=== PATIENT | female | born 1975 | race Hispanic/Latino ===

== ENCOUNTER 2017-06-09 07:31 | Emergency (ER) | payer MEDICAID, OTHER ==
[~2017-06-09] VITALS: Ht 154.9 cm; Wt 73.6 kg
[2017-06-09 07:35] VITALS: BP 129/85; PULSE 91; RESP 16; O2SAT 100
[2017-06-09] MEDS ORDERED: Tetracaine 0.5% 4 mL Ophthalmic Solution ONE (07:39)
--- NOTE | 2017-06-09 07:44 | ED.REPORT ---
HPI-Eye Problem Date of Service Jun 09, 2017 ED Provider: Estefani Goff MD Patient is a 42 year old female who presents to the ED s/p getting a bleach product used to clean dished splashed in her right eye while at work. She rinsed the eye immediately and a Rohan Lens was placed upon arrival. Associated symptoms include R eye pain, 8/10 in severity. She denies any other symptoms at this time. Nursing Notes Stated Complaint: CLOROX IN RIGHT EYE Nursing Notes Reviewed: Yes Allergies: Coded Allergies: No Known Allergies (Unverified , 06/09/17) General Time Seen by MD: 07:41 Chief Complaint Right eye affected Hx Obtained From: Patient Arrived By: Walk-in Sudden in Onset?: Yes Onset Occurred: Just prior to arrival Caused by: Exposure, chemical Context: Occurred at: Workplace Location: : Eye right Quality: Painful Severity: Current: Pain level 8 out of 10 Severity: Maximum: Pain level 8 out of 10 Pertinent Negative: Pt denies other symptoms Exacerbated by: Light Relieved by: Eyes closed Immunizations: Unknown Past Medical History Past Medical History none reported Past Surgical History none reported Smoking History Unknown if Ever Smoker Ambulatory Status Independent Review of Systems Constitutional: Denies: Chills, Fever Eyes: Reports: Eye pain right Complete sys rev & neg: except as marked. Respiratory: Denies: Shortness of breath Cardiovascular: Denies: Chest pain GI: Denies: Abdominal pain, Nausea, Vomiting Physical Exam Initial Vital Signs Vital Signs (First) Date Time Temp Pulse Resp B/P Pulse Ox O2 Delivery O2 Flow Rate FiO2 06/09/17 07:35 91 16 129/85 100 Room Air Initial VS: Reviewed, Vital signs normal Neck: Supple, Full range of motion Neurologic: Alert, Oriented, Nonfocal Psychiatric: Mood/affect normal, Behavior normal, Normal thought content Head / Eyes: Normocephalic R eye erythematous but vision 20/30 in both eyes Skin: Atraumatic, Color NL, Warm, Dry, Intact Respiratory / Chest: Atraumatic, Breath sounds NL, Breath sounds = bilat, No respiratory distress Cardiovascular: Heart rate NL, Regular rhythm, Heart sounds NL Upper Extremity / MS: Atraumatic Lower Extremity / Pelvis / MS: Atraumatic Re-Eval/Medical Decision Re-Evaluation/Progress : Time of Eval: 09:56 Re-Evaluation/Progress Note: Rechecked pt who is feeling much better. Offered complex human resources manager for discharge, patient declined. Discussed plan for discharge. Patient understands and agrees with plan. All questions addressed at this time. Consultation : Consulted With: Drilling Plant Operator Call Returned at: 10:15 Note: Discussed pt's case with Dr. Bass. Unless patient has issues later, patient is safe to discharge as appropriate care was given. Counseled Regarding: Diagnosis, Lab results, When/why to return to ED Discharge & Departure Primary Impression: Chemical exposure of eye Disposition: Home Discharge Condition All VS Reviewed: Yes Condition: Improved Additional Instructions: You had some bleach splashed in your eye. You treated it perfectly by washing it out at work. We used another liter of saline to wash it out more here in the emergency department. It will likely be irritated for the rest of the day. If it seems like it is getting worse or noting any blurring to your vision, you will need to follow up with [facility] Referrals: Therese Valencia MD (PCP) Scribe Attestation Portions of this note were transcribed by Abelardo Fierro. I, Dr. Goff personally performed the history, physical exam and medical decision-making; I reviewed and confirmed the accuracy of the information in the transcribed note. Signed by: Jonathan Perera, 06/09/17 copies to: Therese Valencia MD, Shawna L MD Jun 09, 2017 07:44 ABELARDO FIERRO Jun 09, 2017 07:56
== END 2017-06-09 10:28 | disposition home or self-care (01) ==
LOC: SED 07:31
DX: Z77.098 Contact with and (suspected) exposure to other hazardous, chiefly nonmedicinal, chemicals (principal); T15.81XA Foreign body in other and multiple parts of external eye, right eye, initial encounter; X58.XXXA Exposure to other specified factors, initial encounter; Y93.89 Activity, other specified; Y99.0 Civilian activity done for income or pay; Y92.59 Other trade areas as the place of occurrence of the external cause